=== PATIENT | female | born 1980 | race Caucasian/White ===

== ENCOUNTER 2019-06-07 11:37 | Emergency (ER) | payer OTHER ==
--- NOTE | 2019-06-07 12:25 | UC ---
Complaint Female HPI - HPI Summary HPI Summary: patient experienced blood in urine 36 h ago, no dysuria at that time. started drinking more water but still sees blood in urine today and starting to urinate frequently . no fever or back pain LMP: 2 weeks ago - History Of Current Complaint Chief Complaint: UCGU Stated Complaint: UTI Time Seen by Provider: 06/07/19 12:06 Hx Obtained From: Patient Hx Last Menstrual Period: 2 weeks ago ?: No Onset/Duration: Sudden Onset Severity Initially: Mild Severity Currently: Mild Pain Intensity: 2 Aggravating Factor(s): Urination Alleviating Factor(s): Nothing Associated Signs And Symptoms: Positive: Negative. Negative: Fever, Back Pain, Vaginal Bleeding/Discharge, Nausea, Genital Blisters - Allergies/Home Medications Allergies/Adverse Reactions: Allergies Allergy/AdvReac Type Severity Reaction Status Date / Time Penicillins Allergy Hives Verified 06/07/19 12:05 welbutrin Allergy Severe Hives Uncoded 06/07/19 12:05 adhesives Allergy Mild Rash Uncoded 06/07/19 12:05 Home Medications: Home Medications Sulfamethox/Trimethoprim DS* [Bactrim DS 800/160 TAB*] 1 tab PO BID #10 tab 10/19 [Rx] PMH/Surg Hx/FS Hx/Imm Hx Previously Healthy: Yes Psychological History: Depression - Surgical History Surgical History: Yes Surgery Procedure, Year, and Place: Breast augmentation. Eye cyst removal - Family History Known Family History: Positive: Hypertension, Diabetes, Other - The daughter recently diagnosed with strep - Social History Occupation: Employed Full-time Lives: With Family Alcohol Use: Occasionally Substance Use Type: None Substance Use Comment - Amount & Last Used: hx mj use Smoking Status (MU): Never Smoked Tobacco - Immunization History Most Recent Tetanus Shot: unknown, Review of Systems All Other Systems Reviewed And Are Negative: Yes Constitutional: Positive: Negative. Negative: Fever Skin: Positive: Negative. Negative: Rash Respiratory: Positive: Negative Cardiovascular: Positive: Negative Gastrointestinal: Positive: Negative Genitourinary: Positive: Hematuria, Frequency Neurological/Mental Status: Positive: Negative Psychological: Positive: Negative Is Patient Immunocompromised?: No Physical Exam Triage Information Reviewed: Yes Appearance: Well-Appearing, No Pain Distress, Well-Nourished Vital Signs: Initial Vital Signs Temp 97.7 F 06/07/19 12:01 Pulse 80 06/07/19 12:01 Resp 12 06/07/19 12:01 BP 132/93 06/07/19 12:01 Pulse Ox 99 06/07/19 12:01 Vital Signs Reviewed: Yes Neck exam: Normal Respiratory Exam: Normal Respiratory: Positive: Lungs clear Cardiovascular Exam: Normal Cardiovascular: Positive: RRR Abdominal Exam: Normal Abdomen Description: Positive: Nontender, No Organomegaly, Soft. Negative: CVA Tenderness (R), CVA Tenderness (L) Bowel Sounds: Positive: Present Neurological Exam: Normal Neurological: Positive: Alert Psychological Exam: Normal Complaint Female Dx - Differential Dx/Diagnosis Differential Diagnosis/HQI/PQRI: Sexually Transmitted Disease, Ureteral Stone, Urinary Tract Infection Provider Diagnosis: UTI (urinary tract infection) Discharge ED - Sign-Out/Discharge Documenting (check all that apply): Patient Departure All imaging exams completed and their final reports reviewed: No Studies - Discharge Plan Condition: Good Disposition: HOME Prescriptions: Sulfamethox/Trimethoprim DS* [Bactrim DS 800/160 TAB*] 1 tab PO BID #10 tab Patient Education Materials: Urinary Tract Infection in Women (ED) Referrals: Kala Best MD [Primary Care Provider] - 2 Days (if no better) Additional Instructions: drink plenty of fluids start Bactrim antibiotic report fever or chills, or abdominal pain - Billing Disposition and Condition Condition: GOOD Disposition: Home
[2019-06-07 14:14] VITALS: BP 132/93
== END 2019-06-07 12:30 | disposition home or self-care (01) ==
LOC: UCEAST 11:37
DX: N39.0 Urinary tract infection, site not specified (principal); Z88.0 Allergy status to penicillin; Z91.09 Other allergy status, other than to drugs and biological substances; Z88.8 Allergy status to other drugs, medicaments and biological substances
CPT/HCPCS: 81003; 87077; 87086; 99212; G0463